=== PATIENT | male | born 1950 | race Asian ===

== ENCOUNTER 2022-03-23 05:37 | Outpatient (CLI) | payer BC ==
[2022-03-24] MEDS ORDERED: BENA10TA66 PO (14:49)
== END 2022-03-24 14:50 | disposition home or self-care (01) ==
LOC: PREOP 05:37
PROVIDERS: ATTEND Internal Medicine
DX: Z01.818 Encounter for other preprocedural examination (principal)

== ENCOUNTER 2022-03-31 07:30 | Day surgery (SDC) | payer BC ==
--- NOTE | 2022-03-22 08:14 | HISTORY AND PHYSICAL ---
COLONOSCOPY HISTORY AND PHYSICAL HISTORY OF PRESENT ILLNESS: The patient is a 72-year-old white male seen for yearly wellness evaluation. He reports he has been feeling well. He has had a subcutaneous nodule on the volar aspect of his right forearm that he reports has not changed. He wanted to have this evaluated. He had one other colonoscopy in 2005 performed by myself that was unremarkable. He is deemed to be of average risk as he is not aware of any family history for colon cancer or colon polyps. He reports that he has been feeling well. He exercises on a regular basis with no past smoking or drinking history. Two weeks ago, he received the new COVID booster, and he was given a flu shot today. He has had Zostrix in the past in regard to vaccination at [facility]. FAMILY HISTORY: He reports one change in family history. His mother at the age of 91 with complications of COVID. Father in his mid-70s secondary to heart attack. He has 5 brothers and 1 sister with no health problems. No other history of vascular disease or cancer. He does walk or ride a bike nearly every day for 30 minutes. PHYSICAL EXAMINATION: GENERAL: Reveals an male, who appears to be in no acute distress, looking a little younger than his stated age. VITAL SIGNS: Blood pressure 130/80. Weight stable at 140.6 pounds. CHEST: Clear. CARDIOVASCULAR: Reveals regular rate and rhythm without murmur, S3 or S4. HEENT: Unremarkable. Sclerae nonicteric. Ear canals clear with normal TMs. Dentition good. ABDOMEN: Soft, supple without mass, organomegaly or tenderness. EXTREMITIES: Reveal no cyanosis, clubbing or edema. SKIN: Evaluation reveals no suspicious nevi. He has a soft, mobile subcutaneous nodule, medial volar left forearm. ASSESSMENT AND PLAN: 1. Stable wellness evaluation. 2. Stable subcutaneous nodule lipoma versus reactive lymph node. No red flag symptoms. The patient reassured. He is to return if it is changing in size and character or becoming painful. The patient is being set up for screening colonoscopy. Prep instructions were given and questions were answered. He asked about CT for coronary scoring. He had one other done and on review of the record, it was in 2005. Considering family history, we will set him up for another test discussing that if he had evidence for calcium, I would be recommending cholesterol lowering medication. Even though his cholesterol levels were not too high, they would be considered too high for him considering marker for atherosclerosis should the CT for coronary scoring indicate any evidence for calcium. Otherwise, we will see him back in one year. Blood tests were reviewed with the patient with no concerns. DocumentID: [id number] Dictated Date: 02/24/2022 00:00:00 Artificial Marble Worker Date: 02/24/2022 03:42:00 Dictated By: SUMIT FORTUNE MD
[~2022-03-31] VITALS: Ht 180.3 cm; Wt 63.6 kg
[2022-03-31] VITALS (11 sets, daily range): BP systolic 154–172; BP diastolic 80–96
[~2022-03-31 07:30] MED LIST: BENA10TA66 PO
[2022-03-31] MEDS ORDERED: D5 LR IV SOLUTION 1,000 ML IV STA (07:36)
[2022-03-31] MEDS ORDERED: MIDAZOLAM 5 MG/5 ML (VERSED) VIAL IV ONE (07:45)
[2022-03-31] MEDS ORDERED: fentaNYL INJ 100 MCG/2 ML AMP IVP ONE (07:45)
--- NOTE | 2022-03-31 07:51 | Pre-Op Note & Conscious Sedat ---
Pre-Operative Progress Note Date H&P Reviewed: Mar 31, 2022 Time H&P Reviewed: 07:50 History & Physical: H&P Reviewed, Patient Examed, No changes noted Pre-Op Diagnosis: screening Conscious Sedation Pre-Proced ASA Score 1 For ASA 3 and 4: Consider anesthesia and medical clearance. Also, for patients with a history of failed moderate sedation consider anesthesia. Airway Lungs Heart ASA score ASA 1: a normal healthy patient ASA 2: a patient with a mild systemic disease (mid diabetes, controlled hypertension, obesity ASA 3: a patient with a severe systemic disease that limits activity (angina, COPD, prior Myocardial infarction) ASA 4: a patient with an incapacitating disease that is a constant threat to life (CHF, renal failure) ASA 5: a moribund patient not expected to survive 24 hrs. (ruptured aneurysm) ASA 6: a declared brain- patient whose organs are being harvested. For emergent operations, add the letter E after the classification Mallampati Classification Grade 2 Sedation Plan Analgesia, Amnesia, Plan communicated to team members, Discussed options with patient/fam, Discussed risks with patient/fam The patient is an appropriate candidate to undergo the planned procedure, sedation, and anesthesia. The patient immediately re-assessed prior to indication. SUMIT FORTUNE MD Mar 31, 2022 07:51
--- NOTE | 2022-03-31 09:57 | Progress Note-Post Operative ---
Post-Procedure Note Physician (s)/Director Of District Office (s) Physician SUMIT FORTUNE MD Pre-Procedure Diagnosis Pre-Procedure Diagnosis: screening Post-Procedure Diagnosis Post-operative diagnosis: Prior to undergoing colonoscopy digital rectal evaluation was performed. Anal sphincter tone was normal and the perianal reflexes intact. No abnormalities noted digital inspection anal canal distal rectal vault or prostate. The colonoscope was then inserted into the rectum and under direct visualization and advanced to the cecum. The cecum was identified by indication of the ileocecal valve and the cecal strap. Photographic documentation was obtained. A careful inspection was made as the colonoscope was withdrawn. Quality the prep was good. Findings there are no evidence for internal or external hemorrhoids. The rectum and sigmoid colon were unremarkable with no evidence of diverticular disease. 1 2 mm hyperplastic appearing descending colonic polyp that was present it was biopsied and ablated. There was no subsequent blood loss. The splenic flexure transverse colon hepatic flexure ascending colon and cecum were unremarkable. Assessment 1 diminutive hyperplastic appearing polyp was removed via hot forceps from the descending colon with no blood loss. This was an otherwise normal colonoscopy to the cecum. Advocate consideration for repeat screening colonoscopy in 10 years. The patient requested no anesthesia so he received no medications/no sedation performed. SUMIT FOTRUNE MD Mar 31, 2022 09:57
== END 2022-03-31 09:30 | disposition home or self-care (01) ==
LOC: ENDO 07:30
PROVIDERS: ATTEND Internal Medicine
DX: Z12.11 Encounter for screening for malignant neoplasm of colon (principal); K63.5 Polyp of colon; R22.31 Localized swelling, mass and lump, right upper limb